=== PATIENT | female | born 1985 | race African-American/Black ===

== ENCOUNTER 2017-05-08 20:38 | Emergency (ER) | payer SELFPAY ==
[~2017-05-08] VITALS: Ht 160 cm; Wt 57.5 kg
[~2017-05-08 20:38] MED LIST: HYDR-3533 PO; NAPR500 PO; ZOFR4TAB3 SL
[2017-05-08 20:45] VITALS: BP 150/101; PULSE 85; RESP 18; TEMP 98; O2SAT 100
[2017-05-08] MEDS ORDERED: TRAM50TA PO (21:07)
[2017-05-08] MEDS ORDERED: ZOFR4TAB3 SL (21:07)
[2017-05-08] MEDS ORDERED: CLIN1CAP5 PO (21:08)
--- NOTE | 2017-05-08 21:08 | PD ---
HPI Chief Complaint: Oral / Dental Pain or Problem Time Seen by Provider: 21:04 Travel History International Travel<30 days: No Contact w/Intl Traveler<30days: No Traveled to known affect area: No History of Present Illness HPI 32-year-old female presents to the emergency department complaint of right- sided maxillary dental pain. Patient states 2 days ago while eating she felt a piece of her tooth break off. Patient denies extremity pain at that time but subsequently has developed severe pain to the #2 molar. Patient denies fever or chills. Patient is not diabetic. Patient's had no trismus. Patient had no difficulty swallowing. Pain is referred to the right ear. No submandibular or submental soft tissue swelling. Patient has allergy to ibuprofen and penicillin. Patient is use topical Orajel without relief. Patient reports her pain as 9/10 intensity. PFSH Past Medical History Narrative Medical Anemia anxiety depression kidney stones sickle-cell trait; no surgery; tobacco use; nursing notes reviewed Anemia: Yes Anxiety: Yes (DURING ) Depression: Yes Diminished Hearing: No Kidney Stones: Yes Sickle Cell Disease: Yes (TRAIT) : 0 Social History Alcohol Use: No Tobacco Use: No (never) Substance Use: No Allergies-Medications (Allergen,Severity, Reaction): Coded Allergies: Cipro (Verified Allergy, Severe, Anaphylaxis, 05/08/17) PT STATES NO LONER ALLERGIC Ibuprofen (Verified Allergy, Severe, "BECAUSE IT MAKES ME BLEED", 05/08/17) Iodine (Verified Allergy, Severe, Anaphylaxis, 05/08/17) Morphine (Verified Allergy, Severe, Anaphylaxis, 05/08/17) Penicillin (Verified Allergy, Severe, RASH, 05/08/17) Reported Meds & Prescriptions Reported Meds & Active Scripts Active Clindamycin (Clindamycin HCl) 150 Mg Cap 300 Mg PO Q6H 7 Days Zofran Odt (Ondansetron Odt) 4 Mg Tab 4 Mg SL Q6HR PRN Tramadol (Tramadol HCl) 50 Mg Tab 50 Mg PO Q6H PRN Naprosyn (Naproxen) 500 Mg Tab 500 Mg PO BID PRN Lortab 5 mg/325 mg (Hydrocodone/Acetaminophen 5 mg/325 mg) 1 Tab 1 Tab PO Q6H PRN Zofran ODT (Ondansetron HCl) 4 Mg Tab 4 Mg SL Q6H PRN FOR NAUSEA/VOMITING Review of Systems Except as stated in HPI: all other systems reviewed are Neg HENT: Positive: Dental Difficulties Physical Exam Narrative GENERAL: Well-developed well-nourished female in no acute distress no respiratory distress; no stridor no hoarseness no trismus. SKIN: Warm and dry. HEAD: Normocephalic. EYES: No scleral icterus. No injection or drainage. ENT: Mucous membranes moist airway is patent #2 tooth with cusp fracture no gingival fluctuance positive gingival soft tissue tenderness and swelling; airway is patent; tympanic membranes no redness dullness or loss of landmarks. NECK: Supple, trachea midline. No JVD or lymphadenopathy. No meningismus no nuchal rigidity no submandibular or submental lymphadenopathy or soft tissue swelling CARDIOVASCULAR: Regular rate and rhythm without murmurs, gallops, or rubs. RESPIRATORY: Breath sounds equal bilaterally. No accessory muscle use. GASTROINTESTINAL: Abdomen soft, non-tender, nondistended. MUSCULOSKELETAL: No cyanosis, or edema. BACK: Nontender without obvious deformity. No CVA tenderness. Data Data Last Documented VS Vital Signs Date Time Temp Pulse Resp B/P Pulse Ox O2 Delivery O2 Flow Rate FiO2 05/08/17 21:07 05/08/17 20:45 98.0 85 18 100 Orders Clindamycin (Cleocin) (05/08/17 21:15) [facility] Medical Decision Making Medical Screen Exam Complete: Yes Emergency Medical Condition: Yes Medical Record Reviewed: Yes Differential Diagnosis Dental fracture, dental abscess apical abscess dental Anna gingivitis Narrative Course Patient with cusp fracture and gingival soft tissue swelling without fluctuance concerning for early abscess first dose of oral antibiotic administered in the emergency department clindamycin 300 mg. Patient reports allergy to penicillin ibuprofen however 0 take Naprosyn therefore encouraged to take medications as prescribed May use [id number] Aleve per package directions as well as to follow-up with dentist. Diagnosis Primary Impression: Dentalgia Additional Impression: Dental abscess Referrals: Dentist 2 days Patient Instructions: General Instructions Additional Instructions: Increase fluid hydration Follow soft diet Follow-up with dentist Complete course of antibiotic as prescribed Take pain medication as prescribed as needed May take Aleve/Naprosyn/naproxen [id number] as tolerated for pain associated with inflammation Take acetaminophen/Tylenol every 4 hours as needed for fever 100.4F or greater Return to the emergency department for any concerns or change condition May use topical Orajel for symptom relief Med/Other Pt SpecificInfo: Prescription(s) given Scripts Clindamycin 150 Mg [id number] Mg PO Q6H 7 Days Ref 0 Prov:Tasneem Hall MD 05/08/17 Ondansetron Odt (Zofran Odt)4 Mg Tab4 Mg SL Q6HR PRN (Nausea/Vomiting) #10 TAB Ref 0 Prov:Tasneem Hall MD 05/08/17 Tramadol 50 Mg Tab50 Mg PO Q6H PRN (PAIN) #7 TAB Ref 0 Prov:Tasneem Hall MD 05/08/17 Disposition: 01 DISCHARGE HOME Condition: Stable Tasneem Hall MD May 08, 2017 21:08
[2017-05-08] MEDS ORDERED: FERR325C PO (21:12)
[2017-05-08] MEDS ORDERED: CLINDAMYCIN 150 MG CAP PO ONE (21:15)
== END 2017-05-08 21:25 | disposition home or self-care (01) ==
LOC: PHEFT 20:38
DX: K04.7 Periapical abscess without sinus (principal)
CPT/HCPCS: 99284

== ENCOUNTER 2017-05-27 16:48 | Emergency (ER) | payer SELFPAY ==
[~2017-05-27] VITALS: Ht 160 cm; Wt 57.0 kg
[~2017-05-27 16:48] MED LIST changes: +CLIN1CAP5 PO; +FERR325C PO; -HYDR-3533 PO; -NAPR500 PO; +TRAM50TA PO
[2017-05-27 16:52] VITALS: BP 122/83; PULSE 83; RESP 12; TEMP 98.5; O2SAT 99
--- NOTE | 2017-05-27 17:14 | PD ---
Physical Exam Date Seen by Provider: May 27, 2017 Time Seen by Provider: 17:14 Narrative 32 yo female here for dental pain. Has had it for a few days. pain is 10/10. No other medical issues. Vitals are stable in triage. Awaiting bed placement. Data Data Last Documented VS Vital Signs Date Time Temp Pulse Resp B/P (MAP) Pulse Ox O2 Delivery O2 Flow Rate FiO2 05/27/17 16:52 98.5 83 12 122/83 (96) 99 MDM Medical Record Reviewed: Yes Supervised Visit with JOSE M: Richi Tabares May 27, 2017 17:14
[2017-05-28] MEDS ORDERED: TRAM50TA PO (08:32)
[2017-05-28] MEDS ORDERED: CLIN1CAP5 PO (08:33)
== END 2017-05-27 20:45 | disposition left against medical advice (07) ==
LOC: NED 16:48
DX: K08.89 Other specified disorders of teeth and supporting structures (principal); Z53.21 Procedure and treatment not carried out due to patient leaving prior to being seen by health care provider
CPT/HCPCS: 99281

== ENCOUNTER 2017-05-28 08:03 | Emergency (ER) | payer SELFPAY ==
[2017-05-28 08:05] VITALS: BP 140/87; PULSE 95; RESP 20; TEMP 97.7; O2SAT 100
--- NOTE | 2017-05-28 08:31 | PD ---
HPI Chief Complaint: Oral / Dental Pain or Problem Time Seen by Provider: 08:23 Travel History International Travel<30 days: No Contact w/Intl Traveler<30days: No Traveled to known affect area: No History of Present Illness HPI 32-year-old female presents the emergency department with ongoing recurrent dental pain right lower jaw. Patient is pain in the #29 and 30 tooth. Patient states was recently treated with clindamycin 2 weeks ago with improvement which has now recurred. Patient is scheduled to see her dentist next week and could not convince sooner. She denies fever, chills, or difficulty swallowing. Pain is currently 6 out of 10. Patient is allergic to Cipro, ibuprofen, morphine, penicillin G. PFSH Past Medical History Anemia: Yes Anxiety: Yes (DURING ) Depression: Yes Diminished Hearing: No Kidney Stones: Yes Immunizations Current: Yes Sickle Cell Disease: Yes (TRAIT) ?: Not : 0 Social History Alcohol Use: No Tobacco Use: No (never) Substance Use: No Allergies-Medications (Allergen,Severity, Reaction): Coded Allergies: ciprofloxacin (Verified Allergy, Severe, Anaphylaxis, 05/28/17) PT STATES NO LONER ALLERGIC ibuprofen (Verified Allergy, Severe, "BECAUSE IT MAKES ME BLEED", 05/28/17) iodine (Verified Allergy, Severe, Anaphylaxis, 05/28/17) morphine (Verified Allergy, Severe, Anaphylaxis, 05/28/17) penicillin G (Verified Allergy, Severe, RASH, 05/28/17) potassium iodide (Verified Allergy, Severe, Anaphylaxis, 05/28/17) povidone-iodine (Verified Allergy, Severe, Anaphylaxis, 05/28/17) sodium iodide (Verified Allergy, Severe, Anaphylaxis, 05/28/17) sodium iodide (Verified Allergy, Severe, Anaphylaxis, 05/28/17) Reported Meds & Prescriptions Reported Meds & Active Scripts Active Clindamycin (Clindamycin HCl) 150 Mg Cap 300 Mg PO Q6H 7 Days Zofran Odt (Ondansetron Odt) 4 Mg Tab 4 Mg SL Q6HR PRN Tramadol (Tramadol HCl) 50 Mg Tab 50 Mg PO Q6H PRN Reported Iron (Ferrous Sulfate) 325 Mg Cap 325 Mg PO DAILY Review of Systems Except as stated in HPI: all other systems reviewed are Neg General / Constitutional: No: Fever Eyes: No: Visual changes HENT: Positive: Dental Difficulties, No: Headaches, Vertigo, Lightheadedness, Sore Throat, Rhinitis, Rhinorrhea, Congestion, Neck Stiffness, Neck Pain, Earache Cardiovascular: No: Chest Pain or Discomfort Respiratory: No: Shortness of Breath Gastrointestinal: No: Abdominal Pain Genitourinary: No: Dysuria Musculoskeletal: No: Pain Skin: No Rash Neurologic: No: Weakness Psychiatric: No: Depression Endocrine: No: Polydipsia Hematologic/Lymphatic: No: Easy Bruising Physical Exam Narrative GENERAL: Patient is in mild to moderate distress. SKIN: Warm and dry. Normal color. Normal turgor. HEAD: Atraumatic. Normocephalic. Mild swelling of the right lower jaw. EYES: Pupils equal and round. No scleral icterus. No injection or drainage. ENT: No nasal bleeding or discharge. Mucous membranes pink and moist. Pharynx is clear. Airway is patent. Dental caries are noted with swelling to the gingiva on the right lower jaw at the base of the #29 and #30 tooth. NECK: Trachea midline. Supple and nontender without lymphadenopathy. CARDIOVASCULAR: Regular rate and rhythm. RESPIRATORY: No accessory muscle use. Clear to auscultation. Breath sounds equal bilaterally. MUSCULOSKELETAL: Extremities without clubbing, cyanosis, or edema. No obvious deformities. NEUROLOGICAL: Awake and alert. No obvious cranial nerve deficits. Motor grossly within normal limits. Five out of 5 muscle strength in the arms and legs. Normal speech. PSYCHIATRIC: Appropriate mood and affect; insight and judgment normal. Data Data Last Documented VS Vital Signs Date Time Temp Pulse Resp B/P (MAP) Pulse Ox O2 Delivery O2 Flow Rate FiO2 05/28/17 08:05 97.7 95 20 140/87 (104) 100 Room Air MDM Medical Decision Making Medical Screen Exam Complete: Yes Emergency Medical Condition: Yes Differential Diagnosis Dental caries. Dental pain. Dental abscess. Narrative Course Patient's medically stable at time of exam. Patient is given clindamycin 150 mg she states 2 tabs every 6 hours for the next 10 days. Patient is given Ultram 50 mg one every 6 hours when necessary pain #7. Patient follow with dentist as currently scheduled. Patient can return with worsening symptoms if necessary. Diagnosis Primary Impression: Dental abscess Referrals: Dentist Patient Instructions: General Instructions Departure Forms: Work Release Enter return to work date: May 29, 2017 Additional Instructions: Patient is given clindamycin 150 mg she states 2 tabs every 6 hours for the next 10 days. Patient is given Ultram 50 mg one every 6 hours when necessary pain #7. Patient follow with dentist as currently scheduled. Patient can return with worsening symptoms if necessary. Med/Other Pt SpecificInfo: Prescription(s) given Scripts Clindamycin (Clindamycin) 150 Mg Cap 300 MG PO Q6H for Infection for 10 Days, CAP 0 Refills Prov: Yadira Bardales MD 05/28/17 Tramadol (Tramadol) 50 Mg Tab 50 MG PO Q6H Y for PAIN, #7 TAB 0 Refills Prov: Yadira Bardales MD 05/28/17 Disposition: 01 DISCHARGE HOME Condition: Stable Pete Méndez May 28, 2017 08:31
[2017-05-28] MEDS ORDERED: TRAM50TA PO (08:32)
[2017-05-28] MEDS ORDERED: CLIN1CAP5 PO (08:33)
== END 2017-05-28 08:59 | disposition home or self-care (01) ==
LOC: NEPK 08:03
DX: K04.7 Periapical abscess without sinus (principal); D64.9 Anemia, unspecified; F41.9 Anxiety disorder, unspecified; D57.3 Sickle-cell trait; Z88.5 Allergy status to narcotic agent; Z88.6 Allergy status to analgesic agent; Z88.0 Allergy status to penicillin; Z88.1 Allergy status to other antibiotic agents; Z79.899 Other long term (current) drug therapy
CPT/HCPCS: 99284

== ENCOUNTER 2017-07-21 14:48 | Emergency (ER) | payer SELFPAY ==
[~2017-07-21] VITALS: Ht 160 cm; Wt 55.8 kg
[2017-07-21 14:54] VITALS: BP 136/70; PULSE 110; RESP 18; TEMP 98; O2SAT 100
[2017-07-21] MEDS ORDERED: SODIUM CHLOR 0.9% 1000 ML INJ 1,000 ML IV SCH (16:07)
[2017-07-21] MEDS ORDERED: SODIUM CHLORIDE 0.9% FLUSH 10 ML FLUSH IV FLUSH PRN (16:15)
[2017-07-21] MEDS ORDERED: KETOROLAC TROMETHAMINE 30 MG/ML (IVP) VIAL IVP ONE (16:15)
[2017-07-21] MEDS ORDERED: ONDANSETRON HCL 4 MG/2 ML VIAL IVP ONE (16:15)
--- NOTE | 2017-07-21 16:19 | PD ---
HPI Chief Complaint: Flank/Kidney Pain Time Seen by Provider: 15:57 Travel History International Travel<30 days: No Contact w/Intl Traveler<30days: No Traveled to known affect area: No History of Present Illness HPI The patient is a 32-year-old after [place] female who presents to the emergency department for left flank pain. The patient developed left flank pain at 5 AM this morning which awakened her from sleep. The pain is sharp, constant, radiates from the left mid back to the left flank. She does note mild pinkish tinge to her urine, denies any outright hematuria. She denies any dysuria, frequency, urgency, vaginal bleeding, or vaginal discharge. Patient's last menstrual cycle was June 24, 2017, she denies . She does have a history of nephrolithiasis with similar symptoms in the past. She denies any associated fever, chills, or sweats. Symptoms are moderate without any alleviating or exacerbating factors. PFSH Past Medical History Anemia: Yes Anxiety: Yes (DURING ) Depression: Yes Diminished Hearing: No Kidney Stones: Yes Immunizations Current: Yes Sickle Cell Disease: Yes (TRAIT) ?: Not LMP: 06/24/17 : 0 Social History Alcohol Use: No Tobacco Use: No (never) Substance Use: No Allergies-Medications (Allergen,Severity, Reaction): Coded Allergies: ciprofloxacin (Verified Allergy, Severe, Anaphylaxis, 05/28/17) PT STATES NO LONER ALLERGIC iodine (Verified Allergy, Severe, Anaphylaxis, 05/28/17) morphine (Verified Allergy, Severe, Anaphylaxis, 05/28/17) penicillin G (Verified Allergy, Severe, RASH, 05/28/17) potassium iodide (Verified Allergy, Severe, Anaphylaxis, 05/28/17) povidone-iodine (Verified Allergy, Severe, Anaphylaxis, 05/28/17) sodium iodide (Verified Allergy, Severe, Anaphylaxis, 05/28/17) sodium iodide (Verified Allergy, Severe, Anaphylaxis, 05/28/17) Reported Meds & Prescriptions Reported Meds & Active Scripts Active Reported Iron (Ferrous Sulfate) 325 Mg Cap 325 Mg PO DAILY Review of Systems Except as stated in HPI: all other systems reviewed are Neg General / Constitutional: No: Fever Cardiovascular: No: Chest Pain or Discomfort Respiratory: No: Shortness of Breath Gastrointestinal: No: Nausea, Vomiting, Abdominal Pain Genitourinary: Positive: Flank Pain, Other (slightly pinkish tinge to her urine ), No: Urgency, Frequency, Dysuria, Hematuria Skin: No Rash Physical Exam Narrative GENERAL: Awake, alert, nontoxic-appearing 32-year-old female who appears her stated age and is in no acute respiratory distress. SKIN: Focused skin assessment warm/dry. HEAD: Atraumatic. Normocephalic. EYES: No injection or drainage. ENT: No nasal bleeding or discharge. Mucous membranes pink and moist. NECK: Trachea midline. No JVD. CARDIOVASCULAR: Regular rate and rhythm. No murmur appreciated. RESPIRATORY: No accessory muscle use. Clear to auscultation. Breath sounds equal bilaterally. GASTROINTESTINAL: Abdomen soft, non-tender, nondistended. No suprapubic tenderness. Back: Mild left CVA tenderness. MUSCULOSKELETAL: No obvious deformities. No clubbing. No cyanosis. No edema. NEUROLOGICAL: Awake and alert. No obvious cranial nerve deficits. Motor grossly within normal limits. Normal speech. PSYCHIATRIC: Appropriate mood and affect; insight and judgment normal. Data Data Last Documented VS Vital Signs Date Time Temp Pulse Resp B/P (MAP) Pulse Ox O2 Delivery O2 Flow Rate FiO2 07/21/17 14:54 98.0 110 18 136/70 (92) 100 Orders Orders Complete Blood Count With Diff (07/21/17 16:07) Comprehensive Metabolic Panel (07/21/17 16:07) Lipase (07/21/17 16:07) Urinalysis - C+S If Indicated (07/21/17 16:07) Ct Abd/Pel W/O Iv Contrast (07/21/17 16:07) Iv Access Insert/Monitor (07/21/17 16:07) Ecg Monitoring (07/21/17 16:07) Oximetry (07/21/17 16:07) Ondansetron Inj (Zofran Inj) (07/21/17 16:15) Sodium Chlor 0.9% 1000 Ml Inj (Ns 1000 M (07/21/17 16:07) Sodium Chloride 0.9% Flush (Ns Flush) (07/21/17 16:15) Ketorolac Inj (Toradol Inj) (07/21/17 16:15) Ed Urine Pregnancytest Poc (07/21/17 16:07) Diphenhydramine Inj (Benadryl Inj) (07/21/17 17:00) Labs Laboratory Tests Test 07/21/17 16:24 07/21/17 16:33 Urine Color YELLOW Urine Turbidity CLEAR Urine pH 5.5 Urine Specific [place] 1.010 Urine Protein NEG mg/dL Urine Glucose (UA) NEG mg/dL Urine Ketones NEG mg/dL Urine Occult Blood LARGE Urine Nitrite NEG Urine Bilirubin NEG Urine Leukocyte Esterase NEG Urine RBC 50-99 /hpf Urine WBC 3-5 /hpf Urine Squamous Epithelial Cells 0-5 /hpf Microscopic Urinalysis Comment CULT NOT INDICATED White Blood Count 7.7 TH/MM3 Red Blood Count 4.15 MIL/MM3 Hemoglobin 8.1 GM/DL Hematocrit 26.9 % Mean Corpuscular Volume 64.9 FL Mean Corpuscular Hemoglobin 19.6 PG Mean Corpuscular Hemoglobin Concent 30.3 % Red Cell Distribution Width 18.9 % Platelet Count 335 TH/MM3 Mean Platelet Volume 8.0 FL CBC Comment AUTO DIFF Blood Urea Nitrogen 9 MG/DL Creatinine 1.00 MG/DL Random Glucose 81 MG/DL Total Protein 8.9 GM/DL Albumin 4.1 GM/DL Calcium Level 8.8 MG/DL Alkaline Phosphatase 69 U/L Aspartate Amino Transf (AST/SGOT) 17 U/L Alanine Aminotransferase (ALT/SGPT) 17 U/L Total Bilirubin 0.2 MG/DL Sodium Level 137 MEQ/L Potassium Level 3.9 MEQ/L Chloride Level 107 MEQ/L Carbon Dioxide Level 21.3 MEQ/L Anion Gap 9 MEQ/L Estimat Glomerular Filtration Rate 78 ML/MIN Lipase 190 U/L MDM Medical Decision Making Medical Screen Exam Complete: Yes Emergency Medical Condition: Yes Medical Record Reviewed: Yes Interpretation(s) Last Impressions Abdomen/Pelvis CT 07/21/17 1607 Signed Impressions: Service Date/Time: Friday, July 21, 2017 16:52 - CONCLUSION: 1. Innumerable, subcentimeter nonobstructing renal calculi bilaterally. No obvious ureteric stones to explain current clinical symptoms. 2. Probable 3 cm right ovarian cyst. Appendix is normal by CT criteria. 3. Small amount of free fluid in the cul-de-sac, well within the range of physiologic for a menstruating female. Jude Osman MD Laboratory Tests Test 07/21/17 16:24 10/24/17 16:33 Urine Color YELLOW Urine Turbidity CLEAR Urine pH 5.5 Urine Specific [place] 1.010 Urine Protein NEG mg/dL Urine Glucose (UA) NEG mg/dL Urine Ketones NEG mg/dL Urine Occult Blood LARGE Urine Nitrite NEG Urine Bilirubin NEG Urine Leukocyte Esterase NEG Urine RBC 50-99 /hpf Urine WBC 3-5 /hpf Urine Squamous Epithelial Cells 0-5 /hpf Microscopic Urinalysis Comment CULT NOT INDICATED White Blood Count 7.7 TH/MM3 Red Blood Count 4.15 MIL/MM3 Hemoglobin 8.1 GM/DL Hematocrit 26.9 % Mean Corpuscular Volume 64.9 FL Mean Corpuscular Hemoglobin 19.6 PG Mean Corpuscular Hemoglobin Concent 30.3 % Red Cell Distribution Width 18.9 % Platelet Count 335 TH/MM3 Mean Platelet Volume 8.0 FL CBC Comment AUTO DIFF Blood Urea Nitrogen 9 MG/DL Creatinine 1.00 MG/DL Random Glucose 81 MG/DL Total Protein 8.9 GM/DL Albumin 4.1 GM/DL Calcium Level 8.8 MG/DL Alkaline Phosphatase 69 U/L Aspartate Amino Transf (AST/SGOT) 17 U/L Alanine Aminotransferase (ALT/SGPT) 17 U/L Total Bilirubin 0.2 MG/DL Sodium Level 137 MEQ/L Potassium Level 3.9 MEQ/L Chloride Level 107 MEQ/L Carbon Dioxide Level 21.3 MEQ/L Anion Gap 9 MEQ/L Estimat Glomerular Filtration Rate 78 ML/MIN Lipase 190 U/L Differential Diagnosis Differential diagnosis includes nephrolithiasis, pyelonephritis, hydronephrosis , diverticulitis, shingles, ectopic , , PID, cervicitis. Narrative Course IV was established, labs are drawn and sent, and the patient was placed on cardiac telemetry monitoring and continuous pulse oximetry monitoring. Bedside UA test was obtained. UA was sent to lab. CT of the abdomen and pelvis without IV contrast was ordered. Bedside UA test was negative. UA reveals 50-99 RBCs and blood. The patient has a hemoglobin 8.1, when I review the EMR, she has a history of low hemoglobin that ranges from 6.7- 9.2. The patient developed mild redness just above the IV site with IV fluids and Toradol which dissipated after Benadryl 12.5 mg intravenously was administered. The patient states she has had Toradol in the past without any symptoms. Unsure if this is an allergy versus histamine reaction. Patient's pain did improve with Toradol. CT reveals innumerable bilateral small renal calculi but no obvious ureteral calculi or obstruction. Therefore, the patient will be placed on ibuprofen and [place] as needed for pain. She is advised to follow-up with her primary physician. Return if symptoms worsen or progress. Diagnosis Primary Impression: Renal lithiasis Additional Impression: Hematuria Qualified Codes: R31.9 - Hematuria, unspecified Referrals: Kishore Garcia MD as needed Patient Instructions: General Instructions Additional Instructions: Medications as directed. Follow-up with your primary physician. Return if symptoms worsen or progress. Follow-up with urology as needed. Med/Other Pt SpecificInfo: Prescription(s) given Scripts Hydrocodone-Acetaminophen ([place]) 5-325 mg Tab 1 TAB PO Q6H Y for PAIN, #12 TAB 0 Refills Prov: Ravinder Santiago MD 07/21/17 Ibuprofen (Ibuprofen) 600 Mg Tab 600 MG PO Q6H Y for Pain/Inflammation, #20 TAB 0 Refills Prov: Ravinder Santiago MD 07/21/17 Disposition: 01 DISCHARGE HOME Condition: Stable Ravinder Santiago MD Jul 21, 2017 16:19
[2017-07-21 16:20] VITALS: O2SAT 98
[2017-07-21 16:44] LABS: BILIRUBIN, URINE NEG (NEG); BLOOD, URINE LARGE (NEG); GLUCOSE,URINE NEG (NEG); KETONE, URINE NEG (NEG); NITRITE,URINE NEG (NEG); PH, URINE 5.5 (5.0-8.5); URINE LEUKOCYTE ESTERASE NEG (NEG)
[2017-07-21 16:46] LABS: HEMATOCRIT 26.9 % (35.0-46.0); HEMOGLOBIN 8.1 GM/DL (11.6-15.3); MEAN CELL VOLUME 64.9 FL (80.0-100.0); MEAN CORPUSCULAR HEMOGLOBIN 19.6 PG (27.0-34.0); MEAN CORPUSCULAR HGB CONC 30.3 % (32.0-36.0); PLATELET COUNT 335 TH/MM3 (150-450); RED BLOOD COUNT 4.15 MIL/MM3 (4.00-5.30); RED CELL DISTRIBUTION WIDTH 18.9 % (11.6-17.2); WHITE BLOOD COUNT 7.7 TH/MM3 (4.0-11.0)
[2017-07-21 16:51] LABS: CHLORIDE 107 MEQ/L (98-107); SODIUM (NA) 137 MEQ/L (136-145)
[2017-07-21 16:56] LABS: ALBUMIN 4.1 GM/DL (3.4-5.0); CALCIUM 8.8 MG/DL (8.5-10.1); LIPASE 190 U/L (73-393)
[2017-07-21 16:57] LABS: BICARBONATE 21.3 MEQ/L (21.0-32.0); BLOOD UREA NITROGEN 9 MG/DL (7-18); GLUCOSE,RANDOM 81 MG/DL (74-106)
[2017-07-21 16:57] LABS: URINE COLOR YELLOW (YELLW/STRAW)
[2017-07-21 16:58] LABS: SQUAMOUS EPITHELIAL CELL URINE 0-5 /hpf (0-5)
[2017-07-21 16:59] LABS: ALT (GPT) 17 U/L (10-53); AST (GOT) 17 U/L (15-37)
[2017-07-21 17:00] LABS: GLOMERULAR FILTRATION RATE 78 ML/MIN (>89)
[2017-07-21] MEDS ORDERED: diphenhydrAMINE HCL 50 MG/ML VIAL IV PUSH ONE (17:00)
[2017-07-21 17:01] LABS: TOTAL BILIRUBIN ADULT 0.2 MG/DL (0.2-1.0); TOTAL PROTEIN 8.9 GM/DL (6.4-8.2)
[2017-07-21 17:02] LABS: ALKALINE PHOSPHATASE 69 U/L (45-117)
--- NOTE | 2017-07-21 17:17 | RADRPT ---
EXAM DATE/TIME: 07/21/2017 16:52 [facility] COMPARISON: CT ABDOMEN & PELVIS W/O CONTRAST, March 03, 2012, 15:23. INDICATIONS : Left flank pain. ORAL CONTRAST: No oral contrast ingested. RADIATION DOSE: 7.11 CTDIvol (mGy) MEDICAL HISTORY : Renal calculi. SURGICAL HISTORY : None. ENCOUNTER: Initial ACUITY: 1 day PAIN SCALE: 6/10 LOCATION: Left flank TECHNIQUE: Volumetric scanning of the abdomen and pelvis was performed. Using automated exposure control and ad justment of the mA and/or kV according to patient size, radiation dose was kept as low as reasonably achievable to obtain optimal diagnostic quality images. DICOM format image data is available electro nically for review and comparison. FINDINGS: LOWER LUNGS: The visualized lower lungs are clear. LIVER: Homogeneous density without lesion. There is no dilation of the biliary tree. No calcified gallston es. SPLEEN: Normal size without lesion. PANCREAS: Within normal limits. KIDNEYS: Normal in size and shape. Innumerable, bilateral nonobstructing renal calculi. No obvious ureteral ca lculi. ADRENAL GLANDS: Within normal limits. VASCULAR: There is no aortic aneurysm. BOWEL/MESENTERY: The stomach, small bowel, and colon demonstrate no acute abnormality. There is no free intraperitone al air or fluid. The appendix is identified, is normal in size and filled with either inssipated stoo l/old contrast and air. No CT findings of appendicitis. ABDOMINAL WALL: Within normal limits. RETROPERITONEUM: There is no lymphadenopathy. BLADDER: No wall thickening or mass. REPRODUCTIVE: 3 cm low density area in the right adnexa probably represents an ovarian cyst. Very small amount of f ree fluid in the deep pelvis. INGUINAL: There is no lymphadenopathy or hernia. MUSCULOSKELETAL: Within normal limits for patient age. CONCLUSION: 1. Innumerable, subcentimeter nonobstructing renal calculi bilaterally. No obvious ureteric stones to explain current clinical symptoms. 2. Probable 3 cm right ovarian cyst. Appendix is normal by CT criteria. 3. Small amount of free fluid in the cul-de-sac, well within the range of physiologic for a menstruat ing female. Jude Osman MD on July 21, 2017 at 17:10 Board Certified Radiologist. This report was verified electronically.
[2017-07-21 17:35] LABS: BANDS 1 % (0-6); BASOPHILS 1 % (0-2); LYMPHOCYTES 26 % (9-44); MONOCYTES 3 % (0-8); NEUTROPHIL # MANUAL DIFF 5.2 TH/MM3 (1.8-7.7); POLYS (SEG NEUTROPHILS) 67 % (16-70)
[2017-07-21 17:36] LABS: OVALOCYTES 1+ (NORMAL)
[2017-07-21] MEDS ORDERED: IBUP-232 PO (17:38)
[2017-07-21] MEDS ORDERED: NORC5TAB PO (17:38)
== END 2017-07-21 18:02 | disposition home or self-care (01) ==
LOC: PHED 14:48
DX: N20.0 Calculus of kidney (principal)
CPT/HCPCS: 74176; 80053; 81001; 83690; 84703; 85007; 85027; 96361; 96374; 96375; 99285; J1200; J1885; J2405; J7030

== ENCOUNTER 2017-08-27 15:04 | Emergency (ER) | payer OTHER ==
[~2017-08-27 15:04] MED LIST changes: -CLIN1CAP5 PO; +IBUP-232 PO; +NORC5TAB PO; -TRAM50TA PO; -ZOFR4TAB3 SL
[2017-08-27 15:07] VITALS: BP 121/82; PULSE 106; RESP 17; TEMP 99.1; O2SAT 100
--- NOTE | 2017-08-27 16:00 | PD ---
HPI Chief Complaint: Complaint Time Seen by Provider: 15:57 Travel History International Travel<30 days: No Contact w/Intl Traveler<30days: No Traveled to known affect area: No History of Present Illness HPI patient c/o frequency, urgency, dysuria specially when urinating. patient denies any fever/n/v/d/ at this time. denies any alleviating/aggravating factors at this time PFSH Past Medical History Anemia: Yes Anxiety: Yes (DURING ) Depression: Yes Diminished Hearing: No Kidney Stones: Yes Medical other: Yes Immunizations Current: Yes Sickle Cell Disease: Yes Tetanus Vaccination: > 5 Years Influenza Vaccination: No ?: Not LMP: 08/21/17 : 0 Para: 0 Past Surgical History Surgical History: No Previous Surgery Social History Alcohol Use: No Tobacco Use: No (never) Substance Use: No Allergies-Medications (Allergen,Severity, Reaction): Coded Allergies: iodine (Verified Allergy, Severe, Anaphylaxis, 05/28/17) morphine (Verified Allergy, Severe, Anaphylaxis, 05/28/17) penicillin G (Verified Allergy, Severe, RASH, 05/28/17) potassium iodide (Verified Allergy, Severe, Anaphylaxis, 05/28/17) povidone-iodine (Verified Allergy, Severe, Anaphylaxis, 05/28/17) sodium iodide (Verified Allergy, Severe, Anaphylaxis, 05/28/17) sodium iodide (Verified Allergy, Severe, Anaphylaxis, 05/28/17) Reported Meds & Prescriptions Reported Meds & Active Scripts Active Ultram (Tramadol HCl) 50 Mg Tab 50 Mg PO Q6H PRN Keflex (Cephalexin) 500 Mg Cap 500 Mg PO Q8H Macrobid (Nitrofurantoin Monoh/Nitrofur Macro) 100 Mg Cap 100 Mg PO BID 5 Days Zofran Odt (Ondansetron Odt) 4 Mg Tab 4 Mg SL Q6HR PRN Review of Systems General / Constitutional: No: Fever Eyes: No: Visual changes HENT: No: Headaches Cardiovascular: No: Chest Pain or Discomfort Respiratory: No: Shortness of Breath Gastrointestinal: No: Abdominal Pain Genitourinary: Positive: Urgency, Frequency, Dysuria Musculoskeletal: No: Pain Skin: No Rash Neurologic: No: Weakness Psychiatric: No: Depression Endocrine: No: Polydipsia Hematologic/Lymphatic: No: Easy Bruising Physical Exam Narrative GENERAL: SKIN: Warm and dry. HEAD: Atraumatic. Normocephalic. EYES: Pupils equal and round. No scleral icterus. No injection or drainage. ENT: No nasal bleeding or discharge. Mucous membranes pink and moist. NECK: Trachea midline. No JVD. CARDIOVASCULAR: Regular rate and rhythm. RESPIRATORY: No accessory muscle use. Clear to auscultation. Breath sounds equal bilaterally. GASTROINTESTINAL: Abdomen soft, non-tender, nondistended. MUSCULOSKELETAL: Extremities without clubbing, cyanosis, or edema. No obvious deformities. NEUROLOGICAL: Awake and alert. No obvious cranial nerve deficits. Motor grossly within normal limits. Five out of 5 muscle strength in the arms and legs. Normal speech. PSYCHIATRIC: Appropriate mood and affect; insight and judgment normal. Data Data Last Documented VS Orders Orders Urinalysis - C+S If Indicated (08/27/17 15:11) Ed Discharge Order (08/27/17 16:45) Labs Laboratory Tests Test 08/27/17 15:00 Urine Color LIGHT-YELLOW Urine Turbidity HAZY Urine pH 6.0 Urine Specific [place] 1.020 Urine Protein NEG mg/dL Urine Glucose (UA) NEG mg/dL Urine Ketones NEG mg/dL Urine Occult Blood TRACE Urine Nitrite NEG Urine Bilirubin NEG Urine Urobilinogen LESS THAN 2.0 MG/DL Urine Leukocyte Esterase SMALL Urine RBC 1 /hpf Urine WBC 2 /hpf Urine Squamous Epithelial Cells 8 /hpf Urine Mucus FEW /lpf Microscopic Urinalysis Comment CULT NOT INDICATED MDM Medical Decision Making Medical Screen Exam Complete: Yes Emergency Medical Condition: Yes Medical Record Reviewed: Yes Differential Diagnosis preg v uti v dental infection Narrative Course neg , ua c/w uti...pt also has some gingivitis without abscess. Diagnosis Primary Impression: UTI (urinary tract infection) Qualified Codes: N30.00 - Acute cystitis without hematuria Patient Instructions: General Instructions, Urinary Tract Infection in Women ( ED) Scripts Tramadol (Ultram) 50 Mg Tab 50 MG PO Q6H Y for PAIN, #14 TAB 0 Refills Prov: Maximo Hassan MD 08/27/17 Cephalexin (Keflex) 500 Mg Cap 500 MG PO Q8H for Infection, #15 CAP 0 Refills Prov: Maximo Hassan MD 08/27/17 Nitrofurantoin Monohydrate Macrocrystals (Macrobid) 100 Mg Cap 100 MG PO BID for Infection for 5 Days, #10 CAP 0 Refills Prov: Maximo Hassan MD 08/27/17 Ondansetron Odt (Zofran Odt) 4 Mg Tab 4 MG SL Q6HR Y for Nausea/Vomiting, #10 TAB 0 Refills Prov: Maximo Hassan MD 08/27/17 Disposition: 01 DISCHARGE HOME Condition: Stable Maximo Hassan MD Aug 27, 2017 16:00
[2017-08-27 16:10] LABS: BLOOD, URINE TRACE (NEG); COMMENT (UR) CULT NOT INDICATED; CULTURE IF INDICATED CULT NOT INDICATED; GLUCOSE,URINE NEG (NEG); KETONE, URINE NEG (NEG); MUCUS URINE FEW /lpf (OCC); NITRITE,URINE NEG (NEG); SQUAMOUS EPITHELIAL CELL URINE 8 /hpf (0-5); URINE COLOR LIGHT-YELLOW (YELLW/STRAW)
[2017-08-27] MEDS ORDERED: ZOFR4TAB3 SL (16:27)
[2017-08-27] MEDS ORDERED: MACR100C2 PO (16:27)
[2017-08-27] MEDS ORDERED: CEPH-460 PO (16:44)
[2017-08-27] MEDS ORDERED: TRAM50 PO (16:59)
[2017-08-27 17:05] VITALS: BP 124/77; TEMP 97.8
== END 2017-08-27 17:05 | disposition home or self-care (01) ==
LOC: NEPD 15:04
DX: N39.0 Urinary tract infection, site not specified (principal); D64.9 Anemia, unspecified
CPT/HCPCS: 81001; 99284

== ENCOUNTER 2017-10-28 17:09 | Emergency (ER) | payer OTHER ==
[~2017-10-28] VITALS: Ht 160 cm; Wt 57.0 kg
[~2017-10-28 17:09] MED LIST changes: +CEPH-460 PO; -FERR325C PO; -IBUP-232 PO; +MACR100C2 PO; -NORC5TAB PO; +TRAM50 PO; +ZOFR4TAB3 SL
[2017-10-28 17:16] VITALS: BP 133/77; PULSE 99; RESP 16; TEMP 98.5; O2SAT 100
[2017-10-28 17:48] LABS: BILIRUBIN, URINE NEG (NEG); BLOOD, URINE NEG (NEG); GLUCOSE,URINE NEG (NEG); KETONE, URINE TRACE mg/dL (NEG); NITRITE,URINE NEG (NEG); URINE LEUKOCYTE ESTERASE SMALL (NEG)
[2017-10-28 18:09] LABS: URINE COLOR YELLOW (YELLW/STRAW)
[2017-10-28 18:11] LABS: BACTERIA, URINE FEW /hpf; RBC, URINE 0-3 /hpf (0-3); SQUAMOUS EPITHELIAL CELL URINE 0-5 /hpf (0-5)
--- NOTE | 2017-10-28 18:34 | PD ---
HPI Chief Complaint: Device Engineer Problem/Complaint Time Seen by Provider: 18:23 Travel History International Travel<30 days: No Contact w/Intl Traveler<30days: No Traveled to known affect area: No History of Present Illness HPI 32yo F with no significant PMH presents to the ED with c/o vaginal itching for a few days. Thinks she has yeast and wants to have it check out. Pt also mention she has pain in her wisdom tooth and has an appointment with dentist next Thursday. Denies any fever, drooling, chest pain, sob, n/v, abdominal pain , focal weakness or numbness. PFSH Past Medical History Anemia: Yes Anxiety: Yes (DURING ) Depression: Yes Diminished Hearing: No Kidney Stones: Yes Immunizations Current: Yes Sickle Cell Disease: Yes Tetanus Vaccination: > 5 Years Influenza Vaccination: No ?: Not : 0 Para: 0 Past Surgical History Surgical History: No Previous Surgery Social History Alcohol Use: No Tobacco Use: No (never) Substance Use: No Allergies-Medications (Allergen,Severity, Reaction): Coded Allergies: iodine (Verified Allergy, Severe, Anaphylaxis, 10/28/17) morphine (Verified Allergy, Severe, Anaphylaxis, 10/28/17) penicillin G (Verified Allergy, Severe, RASH, 10/28/17) potassium iodide (Verified Allergy, Severe, Anaphylaxis, 10/28/17) povidone-iodine (Verified Allergy, Severe, Anaphylaxis, 10/28/17) sodium iodide (Verified Allergy, Severe, Anaphylaxis, 10/28/17) sodium iodide (Verified Allergy, Severe, Anaphylaxis, 10/28/17) Reported Meds & Prescriptions Reported Meds & Active Scripts Active No Active Prescriptions or Reported Medications Review of Systems Except as stated in HPI: all other systems reviewed are Neg Physical Exam Narrative GENERAL: 32yo F not in distress. SKIN: Focused skin assessment warm/dry. HEAD: Atraumatic. Normocephalic. EYES: Pupils equal and round. No scleral icterus. No injection or drainage. MOUTH: +Impacted tooth #17 that is ttp. No trismus. No drooling. No periapical abscess. NECK: Trachea midline. No JVD. CARDIOVASCULAR: Regular rate and rhythm. No murmur appreciated. RESPIRATORY: No accessory muscle use. Clear to auscultation. Breath sounds equal bilaterally. GASTROINTESTINAL: Abdomen soft, non-tender, nondistended. Hepatic and splenic margins not palpable. PELVIC: Thick white clumping vaginal discharge. No blood. No CMT or adnexal tenderness bilaterally. MUSCULOSKELETAL: No obvious deformities. No clubbing. No cyanosis. No edema. NEUROLOGICAL: Awake and alert. No obvious cranial nerve deficits. Motor grossly within normal limits. Normal speech. PSYCHIATRIC: Appropriate mood and affect; insight and judgment normal. Data Data Last Documented VS Vital Signs Date Time Temp Pulse Resp B/P (MAP) Pulse Ox O2 Delivery O2 Flow Rate FiO2 10/28/17 17:16 98.5 99 16 133/77 (95) 100 Orders Orders Urinalysis - C+S If Indicated (10/28/17 17:17) Ed Urine Pregnancytest Poc (10/28/17 17:17) Gc And Chlamydia Pcr (10/28/17 18:33) Wet Prep Profile (10/28/17 18:33) Ketorolac Inj (Toradol Inj) (10/28/17 19:15) Acetaminophen (Tylenol) (10/28/17 19:30) Fluconazole (Diflucan) (10/28/17 20:15) Labs Laboratory Tests Test 10/28/17 17:15 10/28/17 18:47 Urine Color YELLOW Urine Turbidity CLEAR Urine pH 6.0 Urine Specific [place] 1.020 Urine Protein NEG mg/dL Urine Glucose (UA) NEG mg/dL Urine Ketones TRACE mg/dL Urine Occult Blood NEG Urine Nitrite NEG Urine Bilirubin NEG Urine Leukocyte Esterase SMALL Urine RBC 0-3 /hpf Urine WBC 3-5 /hpf Urine Squamous Epithelial Cells 0-5 /hpf Urine Bacteria FEW /hpf Microscopic Urinalysis Comment CULT NOT INDICATED Clue Cells (Wet Prep) NONE SEEN Vaginal Trichomonas (Wet Prep) NONE SEEN Vaginal Yeast (Wet Prep) NONE SEEN MDM Medical Decision Making Medical Screen Exam Complete: Yes Emergency Medical Condition: Yes Differential Diagnosis Vaginal candidiasis vs. bacterial vaginosis vs. impacted wisdom tooth vs. UTI Narrative Course 32yo F with vaginal itching and white discharge. UA showed WBC 3-5. Culture not indicated. Wet prep negative. However, clinically I feel that this is vaginal candidiasis so will treat with fluconazole. Urine negative. Pt given acetaminophen for tooth pain and has appointment with dentist. Return precautions given. Diagnosis Primary Impression: Vaginal candidiasis Patient Instructions: General Instructions Departure Forms: Tests/Procedures Additional Instructions: Please follow up with your [facility] in 3-7 days. Please follow up with your dentist at your appointment time. Return to the ED if symptoms worsen. Med/Other Pt SpecificInfo: Prescription(s) given Scripts Acetaminophen (Tylenol) 325 Mg Tab 650 MG PO Q6H Y for PAIN SCALE 1 TO 4, #20 TAB 0 Refills Prov: Tana Jacobs DO 10/28/17 Disposition: 01 DISCHARGE HOME Condition: Stable Tana Jacobs DO Oct 28, 2017 18:34
[2017-10-28] MEDS ORDERED: KETOROLAC TROMETHAMINE 60 MG/2 ML (IM) VIAL IM ONE (19:15)
[2017-10-28] MEDS ORDERED: ACETAMINOPHEN 325 MG TAB PO ONE (19:30)
[2017-10-28] MEDS ORDERED: FLUCONAZOLE 100 MG TAB PO ONE (20:15)
[2017-10-28 20:37] VITALS: BP 128/72; TEMP 98.4
[2017-10-28] MEDS ORDERED: TYLE325T PO (20:39)
== END 2017-10-28 20:46 | disposition home or self-care (01) ==
LOC: PHED 17:09
DX: B37.3 Candidiasis of vulva and vagina (principal)
CPT/HCPCS: 81001; 84703; 87210; 87491; 87591; 99283